=== PATIENT | male | born 1950 | race Caucasian/White ===

== ENCOUNTER 2017-10-09 15:12 | Day surgery (SDC) | payer OTHER ==
[~2017-10-09] VITALS: Ht 172.7 cm; Wt 108.9 kg
[~2017-10-09 15:12] MED LIST: APRESOLINE100 MG PO; BENICAR40 MG PO; CARDURA4 MG PO; CRESTOR20 MG PO; INSPRA50 MG PO; LASIX20 MG PO; LIPITOR20 MG PO; NORVASC2.5 MG PO
[2017-10-09] MEDS ORDERED: BYSTOLIC20 MG PO (15:44)
[2017-10-09] MEDS ORDERED: ASPIRIN325 MG PO (15:45)
[2017-10-09] MEDS ORDERED: FLAX OIL1000 MG PO (15:47)
[2017-10-09] MEDS ORDERED: CALCIUM 600 +1 EA12 PO (15:47)
[2017-10-09] MEDS ORDERED: ONCE DAILY1 EACH PO (15:49)
[2017-10-09] MEDS ORDERED: VITAMIN B122500 MCG PO (15:51)
[2017-10-09] MEDS ORDERED: VITAMIN C1000 MG PO (15:52)
[2017-10-09] MEDS ORDERED: VITAMIN E1000 UNIT PO (15:52)
[2017-10-09 16:03] VITALS: BP 175/77
[2017-10-09 19:57] VITALS: BP 179/78
[2017-10-09 20:43] VITALS: BP 168/71
== END 2017-10-09 20:52 | disposition home or self-care (01) ==
LOC: SDC 15:12
PROVIDERS: Ophthalmology
DX: H33.41 Traction detachment of retina, right eye (principal); H26.101 Unspecified traumatic cataract, right eye; T85.22XA Displacement of intraocular lens, initial encounter; I13.10 Hypertensive heart and chronic kidney disease without heart failure, with stage 1 through stage 4 chronic kidney disease, or unspecified chronic kidney disease; N18.9 Chronic kidney disease, unspecified; I50.32 Chronic diastolic (congestive) heart failure; E78.2 Mixed hyperlipidemia; E66.09 Other obesity due to excess calories; Z68.37 Body mass index [BMI] 37.0-37.9, adult; Z79.82 Long term (current) use of aspirin; C44.509 Unspecified malignant neoplasm of skin of other part of trunk
CPT/HCPCS: 82948; J0360; J0690; J1100; J1885; J2405; J2795; J3300

== ENCOUNTER 2017-12-06 11:26 | Day surgery (SDC) | payer OTHER ==
[~2017-12-06] VITALS: Ht 172.7 cm; Wt 107.5 kg
[~2017-12-06 11:26] MED LIST changes: +ADULTS 50+ MUL1 EACH PO; +ASPIRIN325 MG PO; +BYSTOLIC20 MG PO; +CALCIUM 600 +1 EA12 PO; +CALCIUM 600 +1 EA16 PO; +CARDURA8 MG PO; +FLAX OIL1000 MG PO; +ILEVRO1.7 ML RIGHT EYE; +LIPITOR40 MG PO; +LO-DOSE ASPIRIN81 M1 PO; +NORVASC5 MG PO; +ONCE DAILY1 EACH PO; +PROCRIT10000 UNI1 SC; +VITAMIN B122500 MCG PO; +VITAMIN C1000 MG PO; +VITAMIN E1000 UNIT PO
[2017-12-06 11:50] LABS: HEMATOCRIT 28.9 % (38.0-50.0); HEMOGLOBIN 9.8 G/DL (12.5-16.6); MCH 33.9 PG (29.0-34.0); MCHC 33.9 G/DL (30.0-36.0); PLATELET COUNT 145 K/uL (156-360); RBC DIS.WIDTH-CV 13.6 % (11.8-14.6); RBC DIS.WIDTH-SD 48.5 % (39-53); RED BLOOD COUNT 2.89 M/uL (4.00-5.50); WHITE BLOOD COUNT 6.2 K/uL (4.1-10.2)
[2017-12-06 12:21] VITALS: BP 189/79
[2017-12-06 12:24] LABS: CHLORIDE 105 MEQ/L (99-109); CREATININE 7.6 MG/DL (0.6-1.3); GFR ESTIMATE (CALCULATED) 8 mL/min/ (58.99-99999); GLUCOSE 121 mg/dL (70-99); POTASSIUM 3.9 MEQ/L (3.7-5.4); SODIUM 140 MEQ/L (136-147); UREA NITROGEN (BUN) 96 mg/dL (9-23)
[2017-12-06 17:10] VITALS: BP 174/77
== END 2017-12-06 18:00 | disposition home or self-care (01) ==
LOC: SDC 11:26
PROVIDERS: Surgery
PROC: 031809D Bypass Left Brachial Artery to Upper Arm Vein with Autologous Venous Tissue, Open Approach (ICD-10-PCS; principal; 2017-12-06)
PROC: 05BF0ZZ Excision of Left Cephalic Vein, Open Approach (ICD-10-PCS; principal; 2017-12-06)
DX: I13.2 Hypertensive heart and chronic kidney disease with heart failure and with stage 5 chronic kidney disease, or end stage renal disease (principal); N18.6 End stage renal disease; E11.22 Type 2 diabetes mellitus with diabetic chronic kidney disease; I50.32 Chronic diastolic (congestive) heart failure; Z99.2 Dependence on renal dialysis; E78.2 Mixed hyperlipidemia; E66.09 Other obesity due to excess calories; Z68.36 Body mass index [BMI] 36.0-36.9, adult
CPT/HCPCS: 80048; 82948; 85027; J0690; J1644; J2250; J2720; J3010; S0020